=== PATIENT | female | born 1955 | race Caucasian/White ===

== ENCOUNTER → 2020-09-22 | Outpatient (CLI) | payer OTHER, MEDICARE ==
[~2020-09-22] MED LIST: ASA81BEC PO; CALCIUM CITRAT1 EA10 PO; COQ-10100 MG PO; GRAPE SEED50 MG PO; MAGNESIUM250 M1 PO; NEXIUM 24HR20 M1 PO; ONE-DAILY MULT1 EAC1 PO; PEPCID COMPLET1 EACH PO; POTASSIUM GLUCO99 M2 PO; PROLIA60 MG/1 ML SUBQ; RESTASIS1 EACH OPHTHALMIC; TURMERIC500 M2 PO; VITAMIN B COMP1 EACH PO; VITAMIN C1000 MG PO; VITAMIN D350 MCG PO; ZOCOR 20 MG TAB20 M1 PO
[2020-09-22 11:08] LABS: URINE BILIRUBIN NEGATIVE (Negative); URINE BLOOD NEGATIVE (Negative); URINE CLARITY CLEAR; URINE COLOR YELLOW; URINE GLUCOSE-RANDOM* NEGATIVE (Negative); URINE KETONES NEGATIVE (Negative); URINE LEUKOCYTES-REFLEX NEGATIVE (Negative); URINE NITRITE-REFLEX NEGATIVE (Negative); URINE PROTEIN (DIPSTICK) NEGATIVE (Negative); URINE SPECIFIC GRAVITY <= 1.005 (1.005-1.035); URINE UROBILINOGEN 0.2 E.U./dl (0.2-1.0)
[2020-09-22 11:09] LABS: HEMOGLOBIN 13.1 gm/dL (12.0-15.0); MCH 30.9 pg (26.0-34.0); MCHC 32.6 g/dL (28.0-37.0); MCV 94.6 fL (80.0-100.0); RBC 4.23 mil/uL (4.20-5.00); RDW 13.7 % (10.5-14.5); WBC 5.5 thou/uL (4.0-11.0)
[2020-09-22 11:17] LABS: ALBUMIN 4.6 g/dL (3.4-5.0); CALCIUM 8.9 mg/dL (8.5-10.1); CREATININE 0.7 mg/dL (0.6-1.0)
[2020-09-22 11:22] LABS: PROTIME 10.4 Seconds (9.3-11.4)
== END ==
LOC: LAB 10:30
PROVIDERS: ATTEND Orthopaedic Surgery
DX: Z01.812 Encounter for preprocedural laboratory examination (principal); Z20.822 Contact with and (suspected) exposure to COVID-19

== ENCOUNTER 2020-09-28 10:33 | Day surgery (SDC) | payer OTHER, MEDICARE ==
[~2020-09-28] VITALS: Ht 157.5 cm; Wt 54.9 kg
[2020-09-28] VITALS (9 sets, daily range): BP systolic 102–134; BP diastolic 61–87
--- NOTE | 2020-09-28 19:36 | NUR ---
PATIENT ALERT XS 4 IV FLUIDS INFUSING ORDERED. PT UP TO BSC. ATE DINNER. NO PAIN OR RESP DISTRESS NOTED ON SHIFT. ASDMISSION PAPERWORK IN COMPUTER. HAS PICCO TO RIGHT KNEE, TEDS SCDS AND POLAR PACK ORDERED.
--- NOTE | 2020-09-29 02:19 | NUR ---
PT WAS CONCERNED ABOUT TAKING THE GABAPENTIN THAT WAS ORDERED FOR HER AT .PT STATED THAT SHE TAKES 100MG AT HOME AND WAS TOLD THAT SHE WILL GET SAME UP ON THE FLOOR.PT WAS RELUCTANT TO TAKE THE MEDICATION BUT LATER DECIDED TO TAKE IT. SNACKS PROVIDED TO PT PER HER REQUEST.NATO DRSG AND POLAR PACK IN PLACE.DRSG ON HER R HIP C/D/I.PT SLEEPING ON HER BED AT THIS TIME.CALL LIGHT WITHIN REACH.
[2020-09-29 05:21] LABS: HEMATOCRIT 32.3 % (37.0-47.0); MCH 32.2 pg (26.0-34.0); MCHC 34.1 g/dL (28.0-37.0); MCV 94.5 fL (80.0-100.0); RBC 3.42 mil/uL (4.20-5.00); RDW 13.8 % (10.5-14.5); WBC 10.4 thou/uL (4.0-11.0)
[2020-09-29 05:26] VITALS: BP 96/53
[2020-09-29 07:56] VITALS: BP 90/57
--- NOTE | 2020-09-29 08:55 | NUR ---
ASSESSMENT: CM REVIEWED CHART AND MET WITH PATIENT. PT IS S/P TOTAL KNEE REPLACEMENT. PT REPORTS LIVING AT HOME WITH HER . PT STATES SHE HAS A RAMP TO ENTER HER HOME AND ALL HER NEEDS ARE ON THE MAIN LEVEL. PT REPORTS SHE HAS CRUTCHES HOME BUT WILL LIKELY NEED A WALKER AT DISCHARGE. PT REPORTS SHE HAS NO PREFERENCE OF DME COMPANY. CM NOTIFIED PROVIDER [employer] WHO IS REVIEWING AND WILL BRING A WALKER TO PATIENTS ROOM. PT IS TO WORK WITH THERAPY TODAY. PT STATES SHE PLANS ON DOING OUTPATIENT THERAPY AND HAS AN APPT SET UP ALREADY FOR TOMORROW IN [place], [place] BUT CANNOT RECALL THE NAME OF THE COMPANY. CM WILL CONTINUE TO FOLLOW TO ASSIST NEEDED. PLANS TO DISCHARGE HOME IF DOES WELL WITH THERAPY.
--- NOTE | 2020-09-29 09:35 | NUR ---
ASSUMED CARE OF PATIENT PT IS ALERT XS 4 GIVEN PO AM MEDS AND PRN PAIN MED PT TO WORK WITH THERAPY THIS AM.
[2020-09-29 10:13] VITALS: BP 90/57
[2020-09-29 12:29] VITALS: BP 90/57
--- NOTE | 2020-09-29 14:08 | NUR ---
DISCHARGE PAPERS REVIEWED WITH PATIENT AND SPOUSE, SIGNED AND COPY IN CHART. ALL BELONGINGS PACKED AND SENT WITH PATIENT INCLUDING WALKER THAT WAS DELIEVERED. IV ACSESS DCD SENT PT WITH POLAR PACK, PICCO DRESSING IN PLACE, TACOS HOSE IN PLACE. SENT ORTHO FOLDER WITH PATIENT. GIVEN PRN PAIN MED PO BEFORE DISCHARGE.
--- NOTE | 2020-10-05 15:09 | O ---
[facility] [place] [address] OPERATIVE REPORT Name: HARIKA MILLIGAN Room #: DEP [facility].Francisco.#: [id number] Admission: 09/28/20 Attend Phys: Silvino Sorensen MD Discharge: 09/29/20 Date of : 55 Report #: [id number] THIS REPORT FOR: cc: GISELA - Family physician unknown FAM - Family physician unknown Silvino Sorensen MD ~ DATE OF SERVICE: 09/28/2020 PREOPERATIVE DIAGNOSIS: Right knee valgus osteoarthritis. POSTOPERATIVE DIAGNOSIS: Right knee valgus osteoarthritis. PROCEDURE: Right total knee arthroplasty using Navio robotic magistrate assistant. SURGEON: Silvino Sorensen MD. HANDKERCHIEF FOLDER: Katherine Lockhart PA-C. INDICATIONS FOR HANDKERCHIEF FOLDER: Throughout the case, extensive retraction and manipulation of the knee was required. This was afforded to me by my magistrate assistant. ANESTHESIA: LMA with an adductor canal block. IMPLANTS: [employer]hew size 4 Journey II BCS Oxinium femur, a size 2 tibia, size 12 constrained polyethylene and size 26 patella. TOURNIQUET TIME: 50 minutes. ESTIMATED BLOOD LOSS: 25 mL. COMPLICATIONS: None. SPECIMENS: None. CONDITION UPON LEAVING THE OPERATING ROOM: Stable. INDICATIONS FOR PROCEDURE: The patient is a 65-year-old female with severe right knee valgus osteoarthritis. She had failed conservative measures for this and after discussion with her, she elected for right total knee arthroplasty. DESCRIPTION OF PROCEDURE: Risks, benefits, alternatives, complications were discussed in detail with the patient including but not limited to risk of anesthesia, risk of damage to nerves, arteries, blood vessels, risk for infection, bleeding, risk for continued knee pain, need for reoperation. Informed consent was obtained from the patient. Right knee was appropriately [facility] [address] [place] [address] OPERATIVE REPORT Name: HARIKA MILLIGAN Audra Room #: DEP [facility] Anastasia.#: [id number] Admission: 09/28/20 Attend Phys: Silvino Sorensen MD Discharge: 09/29/20 Date of : 55 Report #: [id number] marked in the preoperative holding area. IV Ancef was given for preoperative antibiotics. Adductor canal block was placed by Anesthesia. She was brought to the operating room and placed in supine position on the operating room table. LMA anesthesia was induced without complication. Tourniquet was placed on the right thigh. Right lower extremity was prepped and draped in normal sterile fashion. Timeout was performed properly identifying the patient and procedure as well as the instrumentation and implants. All in the operating room were in agreement. Right lower extremity was exsanguinated, tourniquet was inflated. Tourniquet time was 50 minutes. Standard midline approach to the knee was made with 10 blade through the skin. Dissection was taken down sharply to the fascia and deep flaps were developed medially and laterally. Fresh 10 blade was used to make a medial parapatellar arthrotomy and the knee was inspected. There was severe lateral compartment osteoarthritis with moderate medial and patellofemoral osteoarthritis. ACL and PCL were removed sharply. Reference pins were placed in the femur and the tibia. The knee was then digitally mapped using the Tapat[employer] robotic system. Intraoperative plan was made and we sized the size 4 femur, size 2 tibia and a 10 spacer. After acceptance of the intraoperative plan, the distal femoral cut was made with Navio bur. Distal femoral cutting block was pinned in place and chamfer cuts were made. Attention was then turned to the tibia. Remainder of the menisci removed with Bovie cautery. Tibial resection guide was pinned in place using the Navio for placement and tibial resection was made. Flexion and extension gaps were then checked and found to have good balance in flexion and extension both medially and laterally. Tibia was sized, found to be a size 2. Size 2 tibial trial was placed, pinned and punched. A size 4 femoral trial was placed and the box cut was made. This is then trialed with a 10 up to a size 12 polyethylene and size 12 polyethylene demonstrated good stability medially throughout range of motion of the knee. In deep flexion there was slight laxity laterally. It was felt we could make up for this with a constrained implant. A 9 mm of bone was resected from the posterior surface of the patella and a size 26 patellar trial button was placed. Knee was taken through range of motion, found to be stable, found to have good patellar tracking. Trial components were removed. Bony ends were thoroughly irrigated in normal saline. A final size 2 tibia, size 4 Journey II BCS Oxinium femur and a size 26 patella were cemented in place using standard cementation techniques. While the cement cured, a periarticular injection consisting of morphine, ropivacaine, epinephrine, Toradol was placed around the knee joint capsule. After the cement cured, the tourniquet was deflated. Hemostasis was obtained with Bovie cautery. A final size 12 constrained polyethylene was placed. A gram of vancomycin was placed deep in the joint. The fascia was closed with 0 Vicryl, skin was closed with 2-0 Vicryl, 3-0 Monocryl. Dermabond and a NATO dressing was applied. The patient tolerated [address] [address] OPERATIVE REPORT Name: SRINIHARIKA Room #: DEP [facility] Sosa#: [id number] Admission: 09/28/20 Attend Phys: Silvino Sorensen MD Discharge: 09/29/20 Date of : 55 Report #: [id number] this procedure well and went to recovery room under care of anesthesia postoperatively. <ELECTRONICALLY SIGNED> By: Silvino Sorensen MD 10/05/20 1509 [id number] Silvino Sorensen MD /nt
== END 2020-09-29 15:54 | disposition home or self-care (01) ==
LOC: OR 10:33 → 4S 16:15 → OR 09-29 15:54
PROVIDERS: ATTEND Orthopaedic Surgery
DX: M17.11 Unilateral primary osteoarthritis, right knee (principal); M25.561 Pain in right knee; E78.00 Pure hypercholesterolemia, unspecified; E78.5 Hyperlipidemia, unspecified; K21.9 Gastro-esophageal reflux disease without esophagitis; D64.9 Anemia, unspecified; Z98.890 Other specified postprocedural states; Z79.899 Other long term (current) drug therapy; Z87.891 Personal history of nicotine dependence; Z90.710 Acquired absence of both cervix and uterus
CPT/HCPCS: 10195; 50010; 50101; 50415; 50954; 51130; 51225; 51320; 52001; 52282; 53000; 53078; 53365; 54118; 56527; 56528; 57095; 57103; 57110; 57127; 57179; 62110; 62900; 64039; 70005